=== PATIENT | female | born 1975 | race Caucasian/White ===

== ENCOUNTER 2023-07-04 06:16 | Emergency (ER) | payer BC ==
[~2023-07-04] VITALS: Ht 154.9 cm; Wt 98.0 kg
[2023-07-04 06:24] VITALS: O2SAT 97
[2023-07-04] MEDS ORDERED: HYDROCODONE/ACETAMINOPHEN 5/325MG TABLET PO STA (07:09)
[2023-07-04 07:58] LABS: CLARITY URINE CLOUDY (CLEAR); COLOR URINE YELLOW (YELLOW); GLUCOSE URINE NEGATIVE (NEGATIVE); KETONES URINE NEGATIVE (NEGATIVE); LEUKOCYTE ESTERASE URINE 1+ (NEGATIVE); NITRITE URINE POSITIVE (NEGATIVE); OCCULT BLOOD URINE 3+ (NEGATIVE); PH URINE 5.5 (4.5-8.0); PROTEIN URINE NEGATIVE (NEGATIVE); SPECIFIC GRAVITY URINE 1.025 (1.005-1.030); UROBILINOGEN URINE 0.2 E.U./dL (0.2-1.0)
[2023-07-04] MEDS ORDERED: CEPH500T PO (08:24)
[2023-07-04] MEDS ORDERED: TOPUD PO ×2 (08:24)
[2023-07-04 08:48] LABS: SQUAMOUS EPITHELIAL CELL URINE 2+ /lpf (RARE/1+)
[2023-07-04 08:49] LABS: BACTERIA URINE 4+; RBC URINE TNTC /hpf (0-2); WBC URINE 15-25 /hpf (0-2)
[2023-07-04 09:41] LABS: BASOPHILS % 0.6 % (0.0-2.0); HEMATOCRIT. 38.9 % (36.0-48.0); LYMPHOCYTES % 18.3 % (20.0-50.0); MEAN CORPUSCULAR HEMOGLOBIN 25.3 pg (28.0-32.0); MEAN CORPUSCULAR VOLUME 81.8 fL (81.0-99.0); MEAN PLATELET VOLUME 8.4 fl (7.4-10.4); MONOCYTES % 4.8 % (2.0-8.0); NEUTROPHILS % 73.3 % (40.0-76.0); PLATELET 220 x1000/uL (130-400); RED BLOOD CELL COUNT 4.75 mill/uL (4.2-5.4); RED CELL DISTRIBUTION WIDTH 17.3 % (11.6-14.6); WHITE BLOOD COUNT 11.5 x1000/uL (4.5-11.0)
[2023-07-04] MEDS ORDERED: T3 PO (09:54)
[2023-07-04 10:15] LABS: ALANINE AMINOTRANSFERASE 22 IU/L (10-49); ALBUMIN 4.3 g/dL (3.2-4.8); ASPARTATE AMINOTRANSFERASE 16 IU/L (<34); BILIRUBIN TOTAL 0.4 mg/dL (0.1-1.0); CALCIUM 9.1 mg/dL (8.7-10.4); CARBON DIOXIDE 30 mEq/L (21-32); CHLORIDE 111 mEq/L (98-107); CREATININE 0.5 mg/dL (0.6-1.0); GLUCOSE 84 mg/dL (70-105); POTASSIUM 4.1 mEq/L (3.5-5.1); PROTEIN TOTAL 7.2 g/dL (6.0-8.3); SODIUM 144 mEq/L (136-145); UREA NITROGEN BLOOD 15 mg/dL (9-23)
[2023-07-04] MEDS ORDERED: HYDROCODONE/ACETAMINOPHEN 5/325MG TABLET PO NR (12:00)
[2023-07-04 12:24] VITALS: BP 159/78; PULSE 86; RESP 19; TEMP 98.3
== END 2023-07-04 12:25 | disposition home or self-care (01) ==
LOC: ER 06:33
DX: N39.0 Urinary tract infection, site not specified (principal); N23 Unspecified renal colic; E78.00 Pure hypercholesterolemia, unspecified; Z90.710 Acquired absence of both cervix and uterus
CPT/HCPCS: 36415; 74176; 76700; 80053; 81003; 81025; 85025; 87077; 87186; 99284